=== PATIENT | female | born 1960 | race Caucasian/White ===

== ENCOUNTER 2018-03-17 08:17 | Day surgery (SDC) | payer BC ==
[~2018-03-17] VITALS: Ht 175.3 cm; Wt 98.0 kg
[2018-03-17] MEDS ORDERED: HYZAAR 50-12.1 UDTAB PO (08:43)
[2018-03-17] MEDS ORDERED: OSTEO-BI-FLEX 21 TAB PO (08:43)
[2018-03-17] MEDS ORDERED: ASPIRIN 81M81 MG/TA2 PO (08:44)
[2018-03-17] MEDS ORDERED: MULTI VITAMINS1 TAB PO (08:44)
[2018-03-17] MEDS ORDERED: MASON NATURAL1200 MG PO (08:45)
[2018-03-17 09:22] VITALS: BP 142/71; PULSE 77; TEMP 97.7
[2018-03-17 10:25] VITALS: BP 99/63; PULSE 65; TEMP 97.4
[2018-03-17] MEDS ORDERED: MOTRIN 600600 MG/TAB PO (10:39)
[2018-03-17 10:45] VITALS: BP 112/66; PULSE 68
[2018-03-17 11:00] VITALS: BP 111/67; PULSE 64
== END 2018-03-17 11:15 | disposition home or self-care (01) ==
LOC: SDCO 08:17
DX: D17.0 Benign lipomatous neoplasm of skin and subcutaneous tissue of head, face and neck (principal); I10 Essential (primary) hypertension; Z79.82 Long term (current) use of aspirin; Z79.899 Other long term (current) drug therapy
CPT/HCPCS: J2250; J2405; J3010; J7120

== ENCOUNTER 2019-07-16 09:58 | Emergency (ER) | payer BC ==
[~2019-07-16] VITALS: Ht 175.3 cm; Wt 97.7 kg
[~2019-07-16 09:58] MED LIST: ASPIRIN 81M81 MG/TA2 PO; HYZAAR 50-12.1 UDTAB PO; MASON NATURAL1200 MG PO; MOTRIN 600600 MG/TAB PO; MULTI VITAMINS1 TAB PO; OSTEO-BI-FLEX 21 TAB PO
[2019-07-16 10:04] VITALS: PULSE 94; TEMP 97.3
[2019-07-16 11:30] LABS: BASO % 0.3 % (0.0-2.0); GRAN # 4.7 (1.4-6.5); GRAN % 80.2 % (42.2-75.2); HEMATOCRIT 43.6 % (37.0-47.0); HEMOGLOBIN 15.1 g/dl (12.5-16.0); LYMPH # 0.9 (1.2-3.4); MEAN CELL VOLUME 95 fl (80.0-100.0); MEAN CORPUSCULAR HEMOGLOBIN 33 pg (27.0-31.0); MEAN CORPUSCULAR HGB CONC 35 g/dl (33.0-37.0); MEAN PLATELET VOLUME 9.6 fl (7.4-10.4); MONO # 0.2 (0.1-0.6); MONO % 3.3 % (1.7-9.3); PLATELET COUNT 381 K/mm3 (130-400); RED BLOOD COUNT 4.61 M/mm3 (4.10-5.30); REDCELL DISTRIBUTION WIDTH-CV 12.2 % (11.5-14.5)
[2019-07-16 11:40] LABS: ALANINE AMINOTRANSFERASE 23 U/L (9-52); ALBUMIN 4.7 gm/dL (3.5-5.0); ALKALINE PHOSPHATASE 104 U/L (50-136); ANION GAP 7 mmol/L (7-16); AST,SGOT 28 U/L (15-37); BILIRUBIN,TOTAL 0.6 mg/dL (0.0-1.0); BLOOD UREA NITROGEN 17 mg/dL (7-17); CALCIUM 9.7 mg/dL (8.4-10.2); CARBON DIOXIDE 27 mmol/L (22-30); CHLORIDE 107 mmol/L (98-107); CREATININE, serum 0.81 (0.52-1.25); GLUCOSE 114 mg/dL (74-106); POTASSIUM 3.7 mmol/L (3.4-5.0); SODIUM 141 mmol/L (137-145); TOTAL PROTEIN 8.3 gm/dL (6.4-8.2)
[2019-07-16 11:52] LABS: C-REACTIVE PROTEIN < 0.5 mg/dL (0.0-0.9)
[2019-07-16] MEDS ORDERED: ANTIVERT 25MG25 MG PO (12:16)
[2019-07-16 13:06] LABS: COLLECTION METHOD CLEAN CATCH
[2019-07-16 13:18] LABS: MUCOUS Present /lpf; PH 7 (5-8); SQUAMOUS EPITHELIAL 0-2 /hpf; URINE APPEARANCE Cloudy; URINE BACTERIA Rare /hpf; URINE BILIRUBIN Negative (NEGATIVE); URINE BLOOD Negative (NEGATIVE); URINE COLOR Yellow; URINE GLUCOSE Negative (NEGATIVE); URINE KETONE Negative (NEGATIVE); URINE LEUKOCYTE ESTERASE Negative (NEGATIVE); URINE NITRATE Negative (NEGATIVE); URINE PROTEIN(semi-quant) Negative (NEGATIVE); URINE UROBILINOGEN Negative (NEGATIVE)
[2019-07-16 13:20] VITALS: BP 136/82
== END 2019-07-16 13:20 | disposition home or self-care (01) ==
LOC: COL.ER 09:58
PROVIDERS: Physician Assistant
DX: R42 Dizziness and giddiness (principal); I10 Essential (primary) hypertension; Z79.82 Long term (current) use of aspirin
CPT/HCPCS: J2405; J7030